=== PATIENT | female | born 1945 | race Caucasian/White ===

== ENCOUNTER 2017-10-27 22:17 | Emergency (ER) | payer MEDICARE, OTHER ==
[2017-10-27 22:56] LABS: #Eosinphils 0.3 thou/uL (0.0-0.7); #Lymphocytes 1.8 thou/uL (1.20-3.40); #Monocytes 0.4 thou/uL (0.11-0.59); #Neutrophils 2.9 thou/uL (1.40-6.50); %Basophils 0.7 % (0.0-1.0); %Lymphocytes 33.5 % (21.0-51.0); %Monocytes 6.5 % (0.0-10.0); %Neutrophils 54.2 % (42.0-75.0); Hemoglobin 13.8 g/dL (12.0-16.0); Mean Corpuscular HGB CONC 34.7 g/dL (32.0-36.0); Mean Corpuscular Hemoglobin 30.7 pg (27.0-31.0); Mean Corpuscular Volume 88.7 fl (81.0-99.0); Mean Platelet Volume 6.6 fL (7.4-10.4); Platelet Count 306 thou/uL (130-400); RBC Distribution Width 11.7 % (11.5-14.5); Red Blood Cell (RBC) Count 4.49 mill/uL (4.20-5.40); White Blood Cell (WBC) Count 5.3 thou/uL (4.8-10.8)
--- NOTE | 2017-10-27 23:17 | RAD ---
FRONTAL VIEW CHEST: 10/27/17 COMPARISON: 09/04/11. INDICATION: Chest pain. FINDINGS: No evidence of consolidation, effusion, or pneumothorax. The cardiac silhouette is accentuated by sli ght patient rotation and portable technique. There is osseous degenerative change. IMPRESSION: No focal consolidation. POS: [facility]
[2017-10-27 23:21] LABS: CKMB 1.5 ng/mL (0-6.6); Troponin I Less than 0.010 ng/mL (< 0.028)
[2017-10-27 23:33] LABS: ALT (SGPT) 30 U/L (8-55); AST (SGOT) 21 U/L (5-34); Albumin 4.5 g/dL (3.4-4.8); Alkaline Phosphatase 89 U/L (40-150); Anion Gap 14 mmol/L (10-20); BUN (Urea Nitrogen) 17 mg/dL (9.8-20.1); Bilirubin, Total 0.3 mg/dL (0.2-1.2); CK (CPK) 60 U/L (29-168); Calc. Creatinine Clearance 0 mL/min (70-130); Calcium 9.3 mg/dL (7.8-10.44); Carbon Dioxide 22 mmol/L (23-31); Chloride 107 mmol/L (98-107); Estimated GFR-MDRD Greater than 90; Globulin 2.5 g/dL (2.4-3.5); Glucose 95 mg/dL (83-110); Lipase 20 U/L (8-78); Potassium 3.8 mmol/L (3.5-5.1); Sodium 139 mmol/L (136-145)
[2017-10-28] MEDS ORDERED: Ketorolac Tromethamine 30 MG/ML VIAL ONE (00:04)
== END 2017-10-28 00:30 | disposition home or self-care (01) ==
LOC: ERS 22:17
DX: R07.9 Chest pain, unspecified (principal); I10 Essential (primary) hypertension; Z87.891 Personal history of nicotine dependence; Z79.899 Other long term (current) drug therapy
CPT/HCPCS: 36415; 71045; 80053; 82550; 82553; 83690; 83880; 84484; 85025; 85379; 93005; 96374; J1885

== ENCOUNTER 2018-04-16 10:41 | Outpatient (CLI) | payer MEDICARE, OTHER | END 2018-04-16 10:42 | disposition home or self-care (01) | LOC: BICMAMMO 10:41 | PROVIDERS: ATTEND Obstetrics & Gynecology | DX: Z12.31 Encounter for screening mammogram for malignant neoplasm of breast (principal) | CPT/HCPCS: 77063; 77067 ==

== ENCOUNTER 2019-09-07 07:12 | Day surgery (SDC) | payer MEDICARE ==
[2019-09-02 13:27] VITALS: BMI 23.0
--- NOTE | 2019-09-06 08:51 | HP ---
HISTORY OF PRESENT ILLNESS: The patient is a 73-year-old female with a several month history of pain, numbness, and tingling in her right hand and wrist in the median nerve distribution without injury. She has had progressive symptoms despite rest, restriction of activities, splinting, and anti-inflammatory medications. She describes weakness and the pain and numbness are now interfering with day-to-day activities including getting dressed and sleeping. PAST MEDICAL HISTORY: The patient is otherwise in good health. She has a history of hypertension and thyroid replacement. 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 CURRENT MEDICATIONS: 1. Synthroid. 2. Amlodipine. ALLERGIES: SHE IS ALLERGIC TO SULFA. FAMILY HISTORY: Otherwise unremarkable. SOCIAL HISTORY: Otherwise unremarkable. REVIEW OF SYSTEMS: Otherwise unremarkable. PHYSICAL EXAMINATION: GENERAL: A healthy female. HEENT: Unremarkable. NECK: Supple. CHEST: Clear. HEART: Regular rate and rhythm. ABDOMEN: Soft. Nontender. PELVIC: Deferred. RECTAL: Deferred. BREASTS: Deferred. EXTREMITIES: Pertinent findings with the right wrist. There is mild thenar atrophy. There is no bony tenderness. There is full range of motion. There is no crepitus or instability. There is a positive Tinel sign and positive Phalen test. There is subjective numbness in the median nerve distribution. There is good capillary refill. No palpable distal pulses. Nerve conduction studies performed by Dr. Agustin reveal severe right carpal tunnel syndrome and denervation. IMPRESSION: Right carpal tunnel syndrome. PLAN: Endoscopic possible open right carpal tunnel release. The nature of the surgery, length of recovery, and potential complications such as infection, loss of motion, incomplete relief, nerve injury, recurrence, and need for additional treatment or repeat surgery were discussed in detail. Job ID: [id number]
[2019-09-07] MEDS ORDERED: PROPOFOL 20 ML ONE ×2 (09:34→09:57)
[2019-09-07] MEDS ORDERED: Lidocaine 1% (PF) 30 ML VIAL ONE (09:37)
[2019-09-07] MEDS ORDERED: Fentanyl 100 MCG/2 ML VIAL ONE (09:49)
[2019-09-07] MEDS ORDERED: Glycopyrrolate 0.2 MG/ML 5 ML SYRINGE ONE (09:57)
[2019-09-07] MEDS ORDERED: PHENYLEPHRINE-NS 100 MCG/ML 10 ML SYRINGE ONE (09:57)
[2019-09-07] MEDS ORDERED: Ondansetron PF 4 MG/2 ML Vial ONE (10:04)
[2019-09-07] MEDS ORDERED: Dexamethasone 20 MG/5 ML VIAL ONE (10:04)
[2019-09-07] MEDS ORDERED: Succinylcholine Chloride 20 MG/ML 10 ml SYRINGE FS ONE (10:24)
--- NOTE | 2019-09-07 12:09 | OP ---
DATE OF PROCEDURE: 09/07/2019 PREOPERATIVE DIAGNOSIS: Right carpal tunnel syndrome. POSTOPERATIVE DIAGNOSIS: Right carpal tunnel syndrome. PROCEDURE PERFORMED: Right endoscopic carpal tunnel release. ANESTHESIA: General. DESCRIPTION OF PROCEDURE: After satisfactory anesthesia was induced in supine position, the patient was prepped and draped in routine manner. The right arm was elevated and exsanguinated with an Esmarch bandage and a tourniquet was inflated to 250 mmHg. A 2-cm transverse incision was made in the proximal wrist flexion crease and carried down through subcutaneous tissues. Bleeding points were controlled with Bovie cautery. The palmaris longus tendon was much more muscular and the tendons extending down into the wrist joint and these were retracted radially. A distally-based flap of deep forearm fascia was developed and retracted distally. Proximally, the deep forearm fascia was split under direct visualization with small scissors to make sure there was no proximal impingement of the median nerve. Synovial elevators were introduced beneath the transverse carpal ligament and the synovium was cleaned from the under surface. Carpal tunnel dilators were inserted. The BioSETe endoscopic carpal tunnel system was introduced beneath the transverse carpal ligament in line with the ring finger. The distal edge of the ligament was easily identified and then divided in a distal to proximal direction by pulling the trigger of the assembly and engaging the knife and withdrawing the scope proximally. This was done in several stages to make sure there was complete division of the transverse carpal ligament, which was documented with video printer. After withdrawing the scope, the carpal tunnel dilator could be inserted into the carpal tunnel with markedly improved passage of the instrument and subcutaneous position of the instrument. The scope was reintroduced into the carpal tunnel and there was wide separation of the 2 leaves of the transverse carpal ligament. The tourniquet was deflated after 6 minutes. There was no excessive bleeding and the scope was withdrawn. The wound was thoroughly irrigated and closed with running subcuticular 3-0 nylon. Sterile dressing was applied and the patient immobilized in a Velcro wrist splint and taken from the operating room in stable condition. There were no apparent intraoperative complications. The estimated blood loss was negligible. The patient will be discharged home in satisfactory condition, instructed on ice and elevation, given written wound care instructions and a prescription for Troy 5 for pain, 15 tablets. She will be rechecked in my office in approximately 2 weeks or sooner if there are any problems prior to that time. Job ID: [id number]
== END 2019-09-07 12:15 | disposition home or self-care (01) ==
LOC: SDC 07:12
PROVIDERS: ATTEND Orthopaedic Surgery
PROC: 01N54ZZ Release Median Nerve, Percutaneous Endoscopic Approach (ICD-10-PCS; principal; 2019-09-07)
DX: G56.01 Carpal tunnel syndrome, right upper limb (principal); I10 Essential (primary) hypertension; E03.9 Hypothyroidism, unspecified; R42 Dizziness and giddiness; H91.90 Unspecified hearing loss, unspecified ear; Z79.899 Other long term (current) drug therapy; Z88.2 Allergy status to sulfonamides
CPT/HCPCS: J0690; J1100; J2001; J2405; J2704; J3010

== ENCOUNTER 2020-04-25 12:40 | Outpatient (CLI) | payer MEDICARE ==
--- NOTE | 2020-04-25 14:29 | MMO ---
Bilateral MAMMO Bilat Screen [id number]. CLINICAL HISTORY: Patient is 74 years old and is seen for screening. The patient has the following family history of breast cancer: sister, malignant (generic). The patient has no personal history of cancer. VIEWS: The views performed were: bilateral craniocaudal with tomosynthesis and bilateral mediolateral oblique with tomosynthesis. FILMS COMPARED: The present examination has been compared to prior imaging studies performed at [facility] on 04/16/2018, and at [facility] on 02/16/2013, 05/19/2014 and 08/10/2015. This study has been interpreted with the assistance of computer-aided detection. MAMMOGRAM FINDINGS: There are scattered fibroglandular densities. There are no suspicious masses, suspicious calcifications, or new areas of architectural distortion. IMPRESSION: THERE IS NO MAMMOGRAPHIC EVIDENCE OF MALIGNANCY. A ROUTINE FOLLOW-UP MAMMOGRAM IN 1 YEAR IS RECOMMENDED. THE RESULTS OF THIS EXAM WERE SENT TO THE PATIENT. ACR BI-RADS Category 1 - Negative MAMMOGRAPHY NOTE: 1. A negative mammogram report should not delay a biopsy if a dominant of clinically suspicious mass is present. 2. Approximately 10% to 15% of breast cancers are not detected by mammography. 3. Adenosis and dense breasts may obscure an underlying neoplasm. Reported by: MICHAEL BARNETT MD Electonically Signed: [id number]
== END 2020-04-25 12:41 | disposition home or self-care (01) ==
LOC: BICMAMMO 12:40
PROVIDERS: ATTEND Internal Medicine
DX: Z12.31 Encounter for screening mammogram for malignant neoplasm of breast (principal); Z80.3 Family history of malignant neoplasm of breast
CPT/HCPCS: 77063; 77067

== ENCOUNTER 2021-05-24 15:11 | Outpatient (CLI) | payer MEDICARE | END 2021-05-24 15:12 | disposition home or self-care (01) | LOC: BICMAMMO 15:11 | PROVIDERS: ATTEND Internal Medicine | DX: Z12.31 Encounter for screening mammogram for malignant neoplasm of breast (principal); Z80.3 Family history of malignant neoplasm of breast | CPT/HCPCS: 77063; 77067 ==

== ENCOUNTER 2022-06-23 10:03 | Outpatient (CLI) | payer MEDICARE | END 2022-06-23 10:04 | disposition home or self-care (01) | LOC: BICMAMMO 10:03 | PROVIDERS: ATTEND Internal Medicine | DX: Z12.31 Encounter for screening mammogram for malignant neoplasm of breast (principal); Z80.3 Family history of malignant neoplasm of breast | CPT/HCPCS: 77063; 77067 ==

== ENCOUNTER 2022-10-14 11:02 | Outpatient (CLI) | payer MEDICARE | END 2022-10-14 11:03 | disposition home or self-care (01) | LOC: LABBT 11:02 | PROVIDERS: ATTEND Orthopaedic Surgery | DX: Z01.818 Encounter for other preprocedural examination (principal); M17.12 Unilateral primary osteoarthritis, left knee | CPT/HCPCS: 71046; 80048; 81003; 85027; 85610; 86850; 86900; 86901; 87081; 93005; 93010 ==

== ENCOUNTER 2022-10-20 05:37 | Day surgery (SDC) | payer MEDICARE ==
[2022-10-14 12:10] LABS: Bilirubin Neg (Negative); Blood, Urine Negative (Negative); Glucose, Urine (Dipstick) Normal (Negative); Ketone, Urine Negative (Negative); Leukocyte 25 (Negative); Nitrite Positive (Negative); Protein, Urine (Dipstick) Negative (Neg-Trace); Specific Gravity, Urine 1.015 (1.005-1.030); Urobilinogen Normal mg/dL (Less than 2); pH, Urine 6.5 (5.0-9.0)
[2022-10-14 12:16] LABS: Hemoglobin 12.9 g/dL (12.0-15.5); Mean Corpuscular HGB CONC 33.6 g/dL (32.0-36.0); Mean Corpuscular Hemoglobin 29.7 pg (27.0-33.0); Mean Corpuscular Volume 88.5 fl (81.6-98.3); Mean Platelet Volume 9.5 fl (7.4-10.4); Platelet Count 340 10x3/uL (150-450); RBC Distribution Width 12.7 % (11.5-14.5); Red Blood Cell (RBC) Count 4.34 10x6/uL (3.90-5.03); White Blood Cell (WBC) Count 4.6 10x3/uL (3.5-10.5)
[2022-10-14 12:21] LABS: Prothrombin Time 10.9 sec (9.5-12.1)
[2022-10-14 12:24] LABS: Anion Gap 12 mmol/L (10-20); BUN (Urea Nitrogen) 13 mg/dL (9.8-20.1); Calc. Creatinine Clearance 0 mL/min (70-130); Calcium 9.5 mg/dL (7.8-10.44); Carbon Dioxide 27 mmol/L (23-31); Chloride 108 mmol/L (98-107); Estimated GFR 91; Glucose 94 mg/dL (83-110); Potassium 4.3 mmol/L (3.5-5.1); Sodium 143 mmol/L (136-145)
[2022-10-14 12:37] LABS: Clarity Hazy (Clear)
[2022-10-16 11:07] VITALS: BMI 22.6
[2022-10-20] MEDS ORDERED: Midazolam HCl 2 mg/2 ml Vial ONE (06:05)
[2022-10-20] MEDS ORDERED: FENTANYL 50 MCG/ML 1 ML VIAL ONE (06:05)
[2022-10-20] MEDS ORDERED: Sodium Chloride 0.9% 100 ML ONE (06:12)
[2022-10-20] MEDS ORDERED: Tranexamic Acid 1,000 MG/10 ML VIAL ONE (06:12)
[2022-10-20] MEDS ORDERED: Vancomycin 1 GM/200 ML (FROZEN) BAG ONE (06:12)
[2022-10-20] MEDS ORDERED: Propofol 500 MG/50 ML VIAL ONE (06:14)
[2022-10-20] MEDS ORDERED: Bupivacaine 0.25% HCL 30 ML VIAL ONE (06:25)
== END 2022-10-20 07:28 | disposition home or self-care (01) ==
LOC: SDC 05:37 → EDSTATUS 11:00
PROVIDERS: ATTEND Orthopaedic Surgery
DX: M17.12 Unilateral primary osteoarthritis, left knee (principal); Z53.8 Procedure and treatment not carried out for other reasons; Z88.2 Allergy status to sulfonamides; Z87.891 Personal history of nicotine dependence; Z79.890 Hormone replacement therapy; Z79.899 Other long term (current) drug therapy
CPT/HCPCS: 80048; 81003; 85027; 85610; 86850; 86900; 86901; 87081; J3370; J2250; J2704; J3010; J3490; S0020

== ENCOUNTER 2022-11-05 05:44 | Observation (INO) | payer MEDICARE ==
[2022-11-04 14:43] VITALS: BMI 22.3
[2022-11-05] MEDS ORDERED: Bupivacaine PF 0.5% 30 ML VIAL ONE ×2 (06:22→06:39)
[2022-11-05] MEDS ORDERED: Tranexamic Acid 1,000 MG/10 ML VIAL ONE ×2 (06:24→10:35)
[2022-11-05] MEDS ORDERED: Vancomycin 1 GM/200 ML (FROZEN) BAG ONE (06:24)
[2022-11-05] MEDS ORDERED: Sodium Chloride 0.9% 100 ML ONE ×2 (06:24→06:53)
[2022-11-05] MEDS ORDERED: Ketorolac Tromethamine 30 MG/ML VIAL ONE (06:37)
[2022-11-05] MEDS ORDERED: Dexamethasone 20 MG/5 ML VIAL ONE (06:37)
[2022-11-05] MEDS ORDERED: PROPOFOL 200 MG/20 ML VIAL ONE (06:37)
[2022-11-05] MEDS ORDERED: Lidocaine 1% PF 5 ML VIAL ONE (06:37)
[2022-11-05] MEDS ORDERED: Ondansetron PF 4 MG/2 ML Vial ONE (06:37)
[2022-11-05] MEDS ORDERED: Lidocaine 1% (PF) 30 ML VIAL ONE (06:39)
[2022-11-05] MEDS ORDERED: CEFAZOLIN 2 GM VIAL ONE (06:53)
[2022-11-05] MEDS ORDERED: Bupivacaine HCl 0.5%/Epinephrine 1:200,000/PF 30 ml Vial ONE (07:00)
[2022-11-05] MEDS ORDERED: fentaNYL 50 mcg/mL 1 mL Vial SLOW IVP PRN (07:32)
[2022-11-05] MEDS ORDERED: fentaNYL PF 100 MCG/2 ML SYRINGE ONE (07:42)
[2022-11-05] MEDS ORDERED: Zolpidem Tartrate 5 MG TAB PO PRN ×2 (07:45→09:25)
[2022-11-05] MEDS ORDERED: traMADol HCl 50 MG TAB PO PRN ×2 (07:45)
[2022-11-05] MEDS ORDERED: Ondansetron PF 4 MG/2 ML Vial IVP PRN ×2 (07:45→09:25)
[2022-11-05] MEDS ORDERED: HYDROcodone/Acetaminophen 10/325 mg Tablet PO PRN (07:45)
[2022-11-05] MEDS ORDERED: Ropivacaine 0.2% 550 ML 550 ML NERVE BLCK SCH (07:45)
[2022-11-05] MEDS ORDERED: Promethazine HCl 25 MG/ML VIAL IM PRN ×3 (07:45→09:25)
[2022-11-05] MEDS ORDERED: HYDROmorphone 2 MG/ML VIAL SLOW IVP PRN (08:27)
[2022-11-05] MEDS ORDERED: Ondansetron HCl/PF 4 MG/2 ML Vial IVP PRN (08:27)
[2022-11-05] MEDS ORDERED: Meperidine HCl/PF 25 MG/ML VIAL SLOW IVP PRN (08:27)
[2022-11-05] MEDS ORDERED: Acetaminophen 325 MG TAB PO PRN (09:25)
[2022-11-05] MEDS ORDERED: diphenhydrAMINE 25 MG CAP PO PRN (09:25)
[2022-11-05] MEDS ORDERED: Fentanyl 100 MCG/2 ML VIAL SLOW IVP PRN (09:25)
[2022-11-05] MEDS ORDERED: Tranexamic Acid 1,000 MG in Sodium Chloride 0.9% 100 ML IVPB SCH (09:30)
[2022-11-05] MEDS ORDERED: fentaNYL 50 mcg/mL 1 mL Vial ONE ×3 (09:42→13:26)
[2022-11-05] MEDS: Ketorolac Tromethamine 30 MG/ML VIAL IVP SCH ×4 (17:12→23:41)
[2022-11-05] MEDS: CEFAZOLIN 2 GM in Sodium Chloride 0.9% 100 ML IVPB SCH ×2 (17:13→23:41)
[2022-11-05] MEDS: Sodium Chloride 0.9% 1,000 ML IV SCH ×2 (17:52→20:25)
[2022-11-05] MEDS ORDERED: Vancomycin 1 GM in Premix Bag 1 BAG IVPB SCH (20:00)
[2022-11-05] MEDS: Aspirin 81 mg Enteric Coated Tablet PO SCH (20:24)
[2022-11-05] MEDS ORDERED: Amlodipine 5 MG TAB PO SCH (21:00)
[2022-11-06] MEDS: Ketorolac Tromethamine 30 MG/ML VIAL IVP SCH (05:15)
[2022-11-06 05:45] LABS: Hemoglobin 10.7 g/dL (12.0-16.0); Mean Corpuscular HGB CONC 35.5 g/dL (32.0-36.0); Mean Corpuscular Hemoglobin 32.8 pg (27.0-31.0); Mean Corpuscular Volume 92.4 fl (78.0-98.0); Mean Platelet Volume 7.6 fL (7.4-10.4); Platelet Count 276 10x3/uL (130-400); RBC Distribution Width 11.4 % (11.5-14.5); Red Blood Cell (RBC) Count 3.27 mill/uL (4.20-5.40); White Blood Cell (WBC) Count 8.6 10x3/uL (4.8-10.8)
[2022-11-06] MEDS ORDERED: Levothyroxine Sodium 25 MCG TAB PO SCH (06:00)
[2022-11-06] MEDS: HYDROcodone/Acetaminophen 10/325 mg Tablet PO PRN ×2 (07:18→11:34)
[2022-11-06] MEDS: Sodium Chloride 0.9% 1,000 ML IV SCH (07:19)
[2022-11-06] MEDS ORDERED: Ferrous Gluconate 324 MG TAB PO SCH (08:00)
[2022-11-06 08:34] VITALS: BP 124/65; TEMP 98.1
[2022-11-06] MEDS ORDERED: Multivitamin W/ Minerals 1 TAB PO SCH (09:00)
[2022-11-06] MEDS ORDERED: Senokot S 8.6-50 MG TAB PO SCH (09:00)
[2022-11-06] MEDS: Aspirin 81 mg Enteric Coated Tablet PO SCH (09:30)
== END 2022-11-06 11:37 | disposition home or self-care (01) ==
LOC: SDC 05:44 → SURG A 14:09
PROVIDERS: ADMIT Orthopaedic Surgery; ATTEND Orthopaedic Surgery
PROC: 0SRD0J9 Replacement of Left Knee Joint with Synthetic Substitute, Cemented, Open Approach (ICD-10-PCS; principal; 2022-11-05)
DX: M17.12 Unilateral primary osteoarthritis, left knee (principal); I10 Essential (primary) hypertension; E03.9 Hypothyroidism, unspecified; Z79.890 Hormone replacement therapy; Z79.899 Other long term (current) drug therapy; Z88.2 Allergy status to sulfonamides
CPT/HCPCS: 20985; 27447; 85027; 86850; 86900; 86901; 97110; 97116 ×2; 97530; A4306; J3010; J3370; 36415; 96376; C1713; C1776; G0378; J1100; J1885; J2001; J2405; J2704; J2795; J3490; J7050; S0020

== ENCOUNTER 2023-05-25 09:27 | Outpatient (CLI) | payer MEDICARE ==
[2023-05-25] MEDS ORDERED: Magnevist 469MG/ML 20 ML VIAL ONE (15:06)
== END 2023-05-25 09:28 | disposition home or self-care (01) ==
LOC: BICMRI 09:27
PROVIDERS: ATTEND Otolaryngology Otolaryngic Allergy
DX: H90.3 Sensorineural hearing loss, bilateral (principal)
CPT/HCPCS: 70553; 82565

== ENCOUNTER 2023-09-14 11:08 | Outpatient (CLI) | payer MEDICARE | END 2023-09-14 11:09 | disposition home or self-care (01) | LOC: BICMAMMO 11:08 | PROVIDERS: ATTEND Internal Medicine | DX: Z12.31 Encounter for screening mammogram for malignant neoplasm of breast (principal); M85.89 Other specified disorders of bone density and structure, multiple sites | CPT/HCPCS: 77063; 77067; 77080 ==

== ENCOUNTER 2024-02-03 20:49 | Emergency (ER) | payer MEDICARE | END 2024-02-03 21:57 | disposition home or self-care (01) | LOC: ERS 20:49 | DX: T63.461A Toxic effect of venom of wasps, accidental (unintentional), initial encounter (principal); Z87.891 Personal history of nicotine dependence | CPT/HCPCS: 99282 ==

== ENCOUNTER 2025-01-17 14:48 | Outpatient (CLI) | payer OTHER | END 2025-01-17 14:49 | disposition home or self-care (01) | LOC: BICMAMMO 14:48 | PROVIDERS: ATTEND Internal Medicine | DX: Z12.31 Encounter for screening mammogram for malignant neoplasm of breast (principal) | CPT/HCPCS: 77063; 77067 ==